=== PATIENT | female | born 1965 | race Caucasian/White ===

== ENCOUNTER → 2016-04-21 | Day surgery (SDC) | payer MEDICAID ==
[2013-11-23 19:31] VITALS: BMI 30.8
[~2016-04-21] MED LIST: BUPIVACAINE 0.25%-EPINEPHRINE 1:200,000 30 ML ONE; CEFAZOLIN 1 GM VIAL ONE; DEXAMETHASONE 4 MG/ML VIAL IV ONE; FENTANYL 100 MCG/2 ML VIAL IV ONE; FENTANYL 100 MCG/2 ML VIAL IV PRN; HEPARIN 5000 UNITS/ML VIAL ONE; HYDROmorphone 1 MG INJECTION IV PRN; ISOVUE-300 (61%) 50 ML ONE; LABETALOL 20 MG/4 ML SYRINGE IV PRN; LIDOCAINE 0.5% 50 ML SDV INF ONE; LIDOCAINE 1% 5 ML (METHYLPARABEN FREE) ONE; MEPERIDINE 25 MG/ML TUBEX IV PRN; MIDAZOLAM 2 MG/2 ML VIAL IV ONE; ONDANSETRON HCL 4 MG ODT TAB PO PRN; ONDANSETRON HCL 4 MG/2 ML VIAL IV ONE; ONDANSETRON HCL 4 MG/2 ML VIAL IV PRN; PHENYLEPHRINE 10 MG/ML VIAL IC ONE; PROPOFOL 200 MG/20 ML VIAL IV ONE; hydrALAZINE 20 MG/ML VIAL IV PRN
--- NOTE | 2016-04-21 08:08 | HIM.ANES ---
Anesthesia Evaluation & Plan Diagnoses: NEOPLASM OF UNSPECIFIED BEHAVIOR OF BREAST (04/21/16) UNSPECIFIED DISORDER OF CIRCULATORY SYSTEM (04/21/16) Consented Procedure: port placement - Focused Review of Systems Cardiac History: No: Hx Cardiac Disorders HEENT: No: Other HEENT Problems Respiratory: Yes: Hx Chronic Obstructive Pulmonary Disease (COPD) Gastrointestinal: No: Hx Gastrointestinal Disorders Neurological/Musculoskeletal: Yes: Hx Back Pain, Hx Numbness, Tingling, Weakness in Arms & Legs (neuropathy right arm and right leg) No: Hx Neurological Disorders Psychological: Yes Hx Mental/Emotional Disorders, Yes Hx Bipolar Disorder Blood/Autoimmune: No: Hx AIDS, Hx Hepatitis (type) Smoking Status: Heavy tobacco smoker (5 or more cigarettes/day or daily pipe/ cigar) Hx Chest Xray (date): Yes (2014) Surgical History: Yes: T&A - Focused Physical Exam NPO since: 04/20/16 4012 Mallampati: Class II Thyromental Distance: Greater than 3 Neck: Full Range of Motion Dental: Normal - no significant findings Cardiovascular/Chest: Normal Respiratory: Lungs clear Any problems with anesthesia, including nausea and vomiting?: No Any relatives with a history of Malignant Hyperthermia?: No Beta Fela given (if appropriate): N/A Other: Problem List Problem Status Onset Accidental fall Acute Cervical strain Acute Lumbar strain Acute Allergies Allergy/AdvReac Type Severity Reaction Status Date / Time No Known Allergies Allergy Verified 04/21/16 07:31 Home Medications Medication Instructions Recorded Last Taken Type Alprazolam [Xanax] 1 mg PO DAILY 06/04/13 7 Months Ago History BuPROPion (Daily formulation) 150 mg PO DAILY 06/04/13 2 Months Ago History [Wellbutrin Xl] Escitalopram Oxalate [Lexapro] 20 mg PO DAILY 06/04/13 2 Months Ago History Cyclobenzaprine HCl [Flexeril] 10 mg PO Q8H PRN #30 tab 11/23/13 04/20/16 Rx Oxycodone HCl [Oxycodone Immediate 5 - 15 mg PO Q4-6H PRN #50 cap 11/23/1304/20 Rx Release Capsule] Albuterol Sulfate [Proair Hfa] 2 puff INH DAILY 04/21/16 3 Days Ago History Fluticasone/Salmeterol [Advair 1 puff INH BID 04/21/16 04/20/16 History 100/50] Height and Weight Patient's height 5 ft 9 in Patient's weight 89.358 kg BMI 30.8 Vital Signs Temperature 97.0 F L 04/21/16 07:30 Pulse Rate 95 04/21/16 07:30 Respiratory Rate 16 04/21/16 07:30 Blood Pressure 107/58 L 04/21/16 07:30 Pulse Oxygen Saturation 96 04/21/16 07:30 - Anesthetic Plan Anesthesia Type: MAC ASA Class: 3 -: I have examined this patient and reviewed the medical record. The patient has been assessed prior to anesthesia. Risks and benefits of anesthesia and anesthetic technique options have been discussed and all questions answered. The patient accepts the risk and desires me to proceed with the planned anesthetic.
--- NOTE | 2016-04-21 09:35 | HIMOPRPT ---
DATE OF PROCEDURE: 04/21/16 PREOPERATIVE DIAGNOSIS: Poor venous access, need for central venous access, breast cancer. POSTOPERATIVE DIAGNOSIS: Same. PROCEDURE: Placement of subclavian vein Port-A-Cath with fluoroscopic control. SURGEON: Parth Yan MD MEDIUM CYCLE SALESPERSON: None ANESTHESIA: General anesthesia. ESTIMATED BLOOD LOSS: Minimal COMPLICATIONS: None noted. ANTIBIOTICS: Preoperative antibiotics given. INDICATIONS: RACHEAL MARTIN is a 50 year-old F patient. She had been found to have breast cancer and was in need IV access for jennifer-adjuvant chemotherapy. We explained the risks and benefits of this to her including the risk of infection, bleeding and anesthesia as well as the unforeseen complications. Consent had been obtained and he was brought for the above- mentioned procedure. PROCEDURE IN DETAIL: The patient was brought to the operating room and placed on the operating room table in supine position. After adequate amount of general anesthesia the patient was prepped and draped in sterile manner. When given the okay by anesthesia after appropriate time-out and assured the antibiotics had been given under ultrasound guidance a large-bore needle was placed into the right internal jugular vein. Good blood return was obtained. Guidewire was placed. This went easily. A subcutaneous pocket was created and then a catheter was tunneled between the 2 sites. Over the guidewire, a dilator and sheath were placed. The guidewire and dilator were removed. Catheter was placed through the sheath. Sheath was removed. Catheter was positioned in the atriocaval junction, cut to size, hooked to the reservoir, sutured down the chest wall. Wound was irrigated, suctioned dry. Hemostasis assured and the wound was closed with 3-0 Vicryl suture and 4-0 Monocryl. Dermabond tissue adhesive was applied and allowed to dry and the port was accessed and flushing through without any problems. The patient was awoken, taken to recovery room in excellent condition with correct sponge counts, needle counts.
--- NOTE | 2016-04-21 10:08 | DIRPT ---
CLINICAL DATA: Port-A-Cath placement EXAM: CHEST 1 VIEW COMPARISON: None. FINDINGS: A right Port-A-Cath is identified. The tubing is intact and the distal tip of the catheter terminates in the SVC below the brachiocephalic confluence. No pneumothorax identified. The cardiomediastinal silhouette is normal. No pulmonary nodules, masses, or focal infiltrates. IMPRESSION: The Port-A-Cath is in good position. No pneumothorax. Electronically Signed By: James Lynn III, M.D On: 04/21/2016 10:05
[2016-04-21 11:04] VITALS: TEMP 97.1
[2016-04-21 11:20] VITALS: PULSE 84
[2016-04-21 15:06] VITALS: BP 110/55
--- NOTE | 2016-04-21 15:06 | SC.ANESPOS ---
Post-Anesthesia Note LOC: Fully Awake Post-Anesthesia Assessment: Awake, Returned to Baseline, Hemodynamically Stable , Pain Control Adequate Phase I & II Recovery Complete: Yes Apparent Anesthesia Complication: No : N PACU Discharge Time: 10:45 - Vital Signs Blood Pressure: 110/55 Pulse: 84 Resp Rate: 18 O2 Sat: 99 Temp: 97.1 F - Comments Anesthesia Discharge Time Report Time 10:45
== END ==
LOC: SDC 06:48
PROVIDERS: ATTEND Surgery
PROC: 05HM33Z Insertion of Infusion Device into Right Internal Jugular Vein, Percutaneous Approach (ICD-10-PCS; principal; 2016-04-21 08:20)
DX: C50.211 Malignant neoplasm of upper-inner quadrant of right female breast (principal); I99.9 Unspecified disorder of circulatory system; J44.9 Chronic obstructive pulmonary disease, unspecified; F17.210 Nicotine dependence, cigarettes, uncomplicated; Z79.899 Other long term (current) drug therapy
CPT/HCPCS: 36561; 77001; C1788; J0690; J1100; J1644; J2250; J2370; J2405; J3010; J3490